=== PATIENT | male | born 1965 | race Caucasian/White ===

== ENCOUNTER 2016-12-29 13:31 | Emergency (ER) | payer OTHER ==
[2016-12-29] MEDS ORDERED: MOTRIN PO ONE (15:04)
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
[2016-12-29 16:18] VITALS: BP 94/71
== END 2016-12-29 16:18 | disposition home or self-care (01) ==
LOC: ED 13:31
DX: M54.5 Low back pain (principal); M25.562 Pain in left knee; E78.00 Pure hypercholesterolemia, unspecified; V49.49XA Driver injured in collision with other motor vehicles in traffic accident, initial encounter; Y92.415 Exit ramp or entrance ramp of street or highway as the place of occurrence of the external cause; Y93.89 Activity, other specified; Y99.9 Unspecified external cause status
CPT/HCPCS: 72040; 72100; 99283